=== PATIENT | female | born 1975 | race Caucasian/White ===

== ENCOUNTER 2017-03-16 12:01 | Emergency (ER) | payer MEDICAID ==
[~2017-03-16] VITALS: Ht 162.6 cm; Wt 85.3 kg
[2017-03-16 12:04] VITALS: BP 123/75
--- NOTE | 2017-03-16 12:08 | NUR ---
Patient to bed 07.
--- NOTE | 2017-03-16 12:10 | NUR ---
41/F BIB C/O TAMPON STUCK IN VAGINA X 1 DAY. SKIN IS PINK/WARM/DRY; AAOX4 WITH EVEN AND STEADY GAIT; LUNGS CLEAR BL; PATIENT STATES VAGINA PAIN OF 4/10 AT THIS TIME; PATIENT POSITIONED FOR COMFORT; HOB ELEVATED; BEDRAILS UP X2; BED DOWN. ER MD MADE AWARE OF PT STATUS.
[2017-03-16 12:52] LABS: APPEARANCE,URINE CLEAR (CLEAR); BILIRUBIN,URINE NEGATIVE (NEGATIVE); BLOOD, URINE 2+ (NEGATIVE); COLOR,URINE YELLOW (YELLOW); NITRITE, URINE NEGATIVE (NEGATIVE); UGLUCOSE NEGATIVE (NEGATIVE)
[2017-03-16] MEDS ORDERED: AZITHROMYCIN 250 MG TAB PO ONE (13:00)
[2017-03-16] MEDS ORDERED: cefTRIAXone 250 MG in LIDOCAINE 1% ***ER ONLY *** 0.9 ML IM ONE (13:00)
[2017-03-16] MEDS ORDERED: metroNIDAZOLE 250 MG TAB PO ONE (13:00)
[2017-03-16 13:04] LABS: RBC,URINE 3-10 (FEW) /HPF (0-5)
[2017-03-16 13:05] LABS: LEUKOCYTE ESTERASE ,URINE TRACE (NEGATIVE)
[2017-03-16 13:45] VITALS: BP 123/72
[2017-03-19 06:09] LABS: CHLAMYDIA TRACHOMATIS AMP DNA Negative (Negative)
== END 2017-03-16 13:45 | disposition home or self-care (01) ==
LOC: MED 12:01
DX: A59.01 Trichomonal vulvovaginitis (principal); N39.0 Urinary tract infection, site not specified
CPT/HCPCS: 36415; 81001; 87086; 87186; 87210; 87491; 96372; 99284; J0696; J2001